=== PATIENT | female | born 1965 | race Caucasian/White ===

== ENCOUNTER 2019-02-03 14:09 | Emergency (ER) | payer OTHER ==
[~2019-02-03] VITALS: Ht 152.4 cm; Wt 73.0 kg
[2019-02-03 14:45] VITALS: Ht 152.4 cm; Wt 73.0 kg
[2019-02-03 17:15] VITALS: BP 152/82
== END 2019-02-03 17:15 | disposition home or self-care (01) ==
LOC: ED 14:09
DX: S20.212A Contusion of left front wall of thorax, initial encounter (principal); M25.512 Pain in left shoulder; I10 Essential (primary) hypertension; V49.9XXA Car occupant (driver) (passenger) injured in unspecified traffic accident, initial encounter; Y93.89 Activity, other specified; Y92.413 State road as the place of occurrence of the external cause; Y99.8 Other external cause status